=== PATIENT | male | born 1980 | race African-American/Black ===

== ENCOUNTER 2017-10-31 00:24 | Emergency (ER) | payer MEDICAID, OTHER ==
[~2017-10-31] VITALS: Ht 175.3 cm; Wt 77.1 kg
[~2017-10-31 00:24] MED LIST: IBUPROFEN600 MG ORAL; LEVOFLOXACIN500 MG ORAL; NKM; RANITIDINE HCL150 MG ORAL; TRAMADOL HCL50 MG ORAL
[2017-10-31] MEDS ORDERED: Albuterol/Ipratropium 3ml neb HHN ONE (01:00)
[2017-10-31] MEDS ORDERED: ALBUTEROL SULF8.5 GM INH (01:19)
[2017-10-31] MEDS ORDERED: PREDNISONE20 MG ORAL (01:19)
[2017-10-31] MEDS ORDERED: PSEUDOEPHEDRINE60 MG PO (01:19)
--- NOTE | 2017-10-31 01:19 | Emergency Room Report ---
History of Present Illness General Chief Complaint: Flu Like Symptoms Source: Patient Present Illness [facility] This 37-year-old male with a history of asthma. He presents with chief complaint of coughing congestion. Onset for last week. No fever or chills. Whole family is sick. But he seemed to be the worse. Coughing with specks of blood. Sinus congested mostly in the left side. Also with ear pain. Denies any other complaint. Allergies: Coded Allergies: No Known Allergies (Unverified , 01/13/13) Patient History Past Medical History: see triage record, old chart reviewed, asthma Past Surgical History: none Pertinent Family History: none Social History: Denies: smoking Immunizations: other Reviewed Nursing Documentation: PMH: Agreed; PSxH: Agreed Nursing Documentation-PMH Past Medical History: No Stated History Review of Systems Eye: Denies: eye pain, blurred vision ENT: Reports: nose congestion; Denies: ear pain, throat swelling Respiratory: Reports: cough, shortness of breath Cardiovascular: Denies: chest pain, palpitations Gastrointestinal: Denies: abdominal pain, diarrhea, nausea, vomiting Musculoskeletal: Denies: back pain, joint pain Skin: Denies: rash Neurological: Denies: headache, numbness Endocrine: Denies: increased thirst, increased urine Hematologic/Lymphatic: Denies: easy bruising All Other Systems: negative except mentioned in HPI Physical Exam Vital Signs Date Time Temp Pulse Resp B/P (MAP) Pulse Ox O2 Delivery O2 Flow Rate FiO2 10/31/17 00:25 98.1 97 20 80/ 96 Room Air 98.1 10/31/17 01:01 21 vitals normal Sp02 EP Interpretation: reviewed, normal General Appearance: well appearing, no apparent distress, alert Head: normocephalic, atraumatic Eyes: bilateral eye PERRL, bilateral eye EOMI ENT: hearing grossly normal, normal pharynx, other - fluid behind left TM. Left turbinate enlarged and congested Neck: full range of motion, supple, no meningismus Respiratory: chest non-tender, lungs clear, normal breath sounds Cardiovascular #1: regular rate, rhythm, no murmur Gastrointestinal: normal bowel sounds, non tender, no mass, no organomegaly, no bruit, non-distended Musculoskeletal: back normal, gait/station normal, normal range of motion Psychiatric: mood/affect normal Skin: warm/dry Medical Decision Making Diagnostic Impression: Primary Impression: Upper respiratory infection, viral ER Course Patient presents with upper respiratory or infection with bronchospasm. No evidence of sepsis, pneumonia, PE to name a few. We'll discharge home. Last Vital Signs Date Time Temp Pulse Resp B/P (MAP) Pulse Ox O2 Delivery O2 Flow Rate FiO2 10/31/17 01:12 86 20 99 Room Air 21 10/31/17 00:25 98.1 80/ 98.1 Status: improved Disposition: HOME, SELF-CARE Condition: Scripts Prednisone* (PREDNISONE*) 20 Mg Tablet 60 MG ORAL DAILY, #12 TAB Prov: BRIEN FULTON M.D. 10/31/17 Albuterol Sulfate* (ALBUTEROL SULFATE MDI*) 8.5 Gm Hfa.aer.ad 2 PUFF INH Q4H PRN for cough/wheezing, #1 EA 0 Refills Prov: BRIEN FULTON M.D. 10/31/17 Pseudoephedrine Hcl* (SUDAFED*) 60 Mg Tablet 60 MG PO Q6H, #30 TAB Prov: BRIEN FULTON M.D. 10/31/17 Additional Instructions: Rest. Increase fluid. Salt water gargle. Follow-up with your DrEwa in 7 days. Return if worse. BRIEN FULTON M.D. Oct 31, 2017 01:19
[2017-10-31 02:00] VITALS: BP_DIAS 89
[2017-10-31 02:08] VITALS: BP_SYST 80
== END 2017-10-31 04:12 | disposition home or self-care (01) ==
LOC: EMR 00:35
DX: J06.9 Acute upper respiratory infection, unspecified (principal)
CPT/HCPCS: 94640; 99284; J7512; J7620